=== PATIENT | female | born 1985 | race Caucasian/White ===

== ENCOUNTER 2016-12-09 04:30 | Inpatient (IN) | payer OTHER ==
[~2016-12-09] VITALS: Ht 160 cm; Wt 75.0 kg
[2016-12-09] VITALS (9 sets, daily range): BP systolic 111–132; BP diastolic 57–73
[2016-12-09] MEDS ORDERED: OXYTOCIN 30 UNITS IN 0.9% NaCl 500ML IV BAG (J2590) As Ordered ONE (04:44)
[2016-12-09] MEDS ORDERED: LR 1,000 ML IV SCH (04:52)
[2016-12-09] MEDS ORDERED: LACTATED RINGER'S 1000 ML IV ONE (05:00)
[2016-12-09 05:01] LABS: MEAN CORPUSCULAR HEMOGLOBIN 30.4 pg (27.0-33.0); MEAN CORPUSCULAR HGB CONC 33.3 g/dl (32.0-36.5); MEAN CORPUSCULAR VOLUME 91.2 fl (80.0-96.0); RED CELL DISTRIBUTION WIDTH 14.7 % (11.5-14.5); WHITE BLOOD COUNT 13.8 K/mm3 (4.0-10.0)
[2016-12-09] MEDS ORDERED: LEVO112T2 PO (05:07)
[2016-12-09 05:23] LABS: CORD GAS ABE A -0.6; CORD GAS ABE V -1.5; CORD GAS HCO3 A 24.6 MEQ/L; CORD GAS HCO3 V 22.1 MEQ/L; CORD GAS O2 SAT A 50.4 %; CORD GAS O2 SAT V 80.5 %; CORD GAS PCO2 A 42.4 mmHg; CORD GAS PCO2 V 34.7 mmHg; CORD GAS PH A 7.382 UNITS; CORD GAS PH V 7.422 UNITS; CORD GAS PO2 A 21.1 mmHg; CORD GAS PO2 V 34.2 mmHg; CORD GAS SBC A 22.7 MEQ/L; CORD GAS SBC V 22.7 MEQ/L; CORD GAS TCO2 A 25.9 MEQ/L; CORD GAS TCO2 V 23.2 MEQ/L
[2016-12-09] MEDS ORDERED: IBUPROFEN 800 MG TAB As Ordered ONE (05:50)
[2016-12-09] MEDS: LEVOTHYROXINE 0.112 MG TAB (112 MCG) PO SCH (06:00)
[2016-12-09] MEDS: IBUPROFEN 800 MG TAB PO PRN ×3 (06:12→23:17)
[2016-12-09] MEDS ORDERED: OXYTOCIN DRIP 30 UNITS in APPROPRIATE DILUENT 1 EA IV SCH (06:18)
[2016-12-09] MEDS ORDERED: RHOGAM 300 MCG (1500 IU) INJ (J2790) IM SCH (06:30)
[2016-12-09] MEDS ORDERED: METHYLERGONOVINE MALEATE 0.2 MG TAB PO PRN (06:30)
[2016-12-09] MEDS ORDERED: MEASLES,MUMPS,RUBELLA VACCINE INJ (MMR-II) (90707) SC SCH (06:30)
[2016-12-09] MEDS ORDERED: DOCUSATE SODIUM 100 MG CAP PO PRN (06:30)
[2016-12-09] MEDS ORDERED: OXYTOCIN INJ 10 UNITS/ML VIAL (J2590) IV ONE ×2 (06:30)
[2016-12-09] MEDS ORDERED: MOM 30ML SUSPENSION UDC PO PRN (06:30)
[2016-12-09] MEDS ORDERED: DIBUCAINE 1% OINTMENT 30GM TOP PRN (06:30)
[2016-12-09] MEDS ORDERED: PRENATAL VITAMIN TAB PO SCH (09:00)
--- NOTE | 2016-12-09 10:28 | HPE ---
DATE OF ADMISSION: 12/09/2016 This lady is a 31-year-old 2, para 1, LMP 03/02/2016, EDC 12/07/2016 at 40 weeks of gestation in active labor, 8 cm dilated with spontaneous rupture of membranes. Risk factors is she is hypothyroid. PAST HISTORY: 02/2014 spontaneous delivery 40 weeks female 5 pounds 15 ounces. LABS: Show A+, HEP negative, RPR negative, rubella immune. Varicella equivocal Pap normal. Urine negative. Gonorrhea and chlamydia negative. 1-hour glucose 98. GBS is negative. PHYSICAL EXAMINATION: On examination distressed female. Symphysis fundus height is 40, vertex 8 cm with show and lots of clear liquor, -1 station. She is pushing on the cervix. Blood pressure is 131/71, respirations are 18, pulse 65, temperature 98.0. We have a term gestation imminently going to deliver.
--- NOTE | 2016-12-09 11:30 | DN ---
DELIVER NOTE DATE: 12/09/2016 This lady is a 2, para 1 admitted at 8 cm with spontaneous rupture of membranes of clear liquid, at full dilatation. She precipitously delivered a live female 3862 grams, 8 pounds 8 ounces, scores of 8 and 9 at one and five minutes, respectively. Placenta delivered spontaneously thereafter. Three vessels in the cord. Membranes and tissues intact. Arterial and venous pH performed. Uterus contracted well down on Pitocin. She had a small little first degree tear which was oversewn in the usual fashion. Examination of the vagina was normal. Cervix was normal and the placenta and membranes were intact. The patient and baby tolerated procedure well.
[2016-12-09] MEDS: ACETAMINOPHEN 500 MG TAB PO PRN (17:35)
[2016-12-10] MEDS: LEVOTHYROXINE 0.112 MG TAB (112 MCG) PO SCH (06:13)
[2016-12-10] MEDS: IBUPROFEN 800 MG TAB PO PRN (06:14)
[2016-12-10 06:15] VITALS: BP 110/75
[2016-12-10 08:11] LABS: MEAN CORPUSCULAR HGB CONC 32.7 g/dl (32.0-36.5); MEAN CORPUSCULAR VOLUME 91.8 fl (80.0-96.0); RED CELL DISTRIBUTION WIDTH 14.7 % (11.5-14.5); WHITE BLOOD COUNT 13.6 K/mm3 (4.0-10.0)
[2016-12-10] MEDS: ACETAMINOPHEN 500 MG TAB PO PRN (08:37)
--- NOTE | 2016-12-10 09:54 | IPNPDOC ---
Text Note Date of Service The patient was seen on 12/10/16 at 09:53. NOTE Maricruz is a 31yo doing well on PPD 1 s/p uncomplicated . She is . Lochia normal, spontaneously voiding and ambulating without difficulty. Tolerating regular diet. Denies f/c/n/v/SOB/CP/BARTHOLOMEW/abdominal pain. Vitals wnl, afebrile Exam: General: WDWN, NAD, resting comfortably Cardiac: S1S2 present, no murmur Lungs: CTAB without wheeze/crackles Abdomen: soft, NTTP, fundus firm u-2cm Extremities: no tenderness of calves bilaterally Assessment: Maricruz is a 31yo doing well on PPD 1 s/p uncomplicated . Meeting all milestones. No e/o infection, hemodynamically stable. Plan: -discharge to home with routine follow-up for 6wk PP visit -home meds already given from clinic stock -declines contraception currently, can readdress at PP visit Dr. Sumaya Bass MD [place] JANKI VS,Soniya, I+O VS, Soniya, I+O Laboratory Tests 12/10/16 07:55 Red Blood Count 4.23, Mean Corpuscular Volume 91.8, Mean Corpuscular Hemoglobin 30.0, Mean Corpuscular Hemoglobin Concent 32.7, Red Cell Distribution Width 14.7 H Vital Signs Date Time Temp Pulse Resp B/P Pulse Ox O2 Delivery O2 Flow Rate FiO2 12/10/16 06:15 95.7 74 16 110/75 100 Room Air SUMAYA BASS MD Dec 10, 2016 09:54
[2016-12-10] MEDS ORDERED: DIBU1OI TOP (10:05)
[2016-12-10] MEDS ORDERED: PRENTAB9 PO (10:05)
[2016-12-10] MEDS ORDERED: COLA100C PO (10:05)
[2016-12-10] MEDS ORDERED: ACET50TA PO (10:05)
[2016-12-10] MEDS ORDERED: MOTR200T44 PO (10:05)
== END 2016-12-10 11:55 | disposition home or self-care (01) | DRG 775 ==
LOC: M LDI 04:30 → M OBS 08:51
PROVIDERS: ADMIT Obstetrics & Gynecology; ATTEND Obstetrics & Gynecology
PROC: 10E0XZZ Delivery of Products of Conception, External Approach (ICD-10-PCS; principal; 2016-12-09)
PROC: 0HQ9XZZ Repair Perineum Skin, External Approach (ICD-10-PCS; 2016-12-09)
DX: O62.3 Precipitate labor (principal); Z37.0 Single live birth; E03.9 Hypothyroidism, unspecified; Z3A.40 40 weeks gestation of pregnancy; O99.284 Endocrine, nutritional and metabolic diseases complicating childbirth; O70.0 First degree perineal laceration during delivery